=== PATIENT | female | born 1975 | race African-American/Black ===

== ENCOUNTER 2020-02-09 07:55 | Emergency (ER) | payer BC ==
[~2020-02-09] VITALS: Ht 167.6 cm; Wt 85.4 kg
--- OUTSIDE RECORDS SUMMARY | 2020-02-09 07:58 | XMS REPORT | Continuity of Care Document ---
Author Author [employer] Porfirio JANUSZ GUY Organization [employer] Address Unknown Phone Unavailable Care Team Providers Care Superintendent Commissary Name Role Phone [facility] [email or web address] Information [employer] Unavailable Un available Problems Problem Status Onset Date Classification Date Reported Comments Source Epigastric pain 12/12/2017 03/13/2018 [facility] EPIGASTRIC PAIN 12/05/2017 03/13/2018 [facility] ABDOMINAL PAIN-UPPER Active 12/04/2017 [facility] UPPER STOMACH PAIN Active 12/04/2017 [facility] Medications Medication Details Route Status Patient Instructions Ordering Provider Order Date Source magnesium citrate 58.2 MG/ML Oral Solution Notes: (Same as: Citrate of Magnesia) Concentration: 1.745 gm / 30 mL Inactive 12/05/2017 [facility] Morphine Notes: (Same as:MORPh ine Sulfate) Inactive 12/05/2017 [facility] Ondansetron 4 mg, Route: IVP, ONCE, Dosing Weight 75, kg, Priority: STAT, Start date: 12/04/17 20:38:00 CDT, Stop date: 12/04/17 20:38:00 CDT Inactive 12/05/2017 [facility] GI cocktail Notes: G.I. Cockta il = antacid with simethicone 22.5 mL - lidocaine viscous 7.5 mL Inactive 12/05/2017 [facility] Saline Flush 0.9% Notes: (Same as: BD Posiflush) No Longer Active 12/05/2017 [facility] Allergies, Adverse Reactions, Alerts No Known Medication Allergies Immunizations No Data Provided for This Section Results Order Name Results Value Reference Range Date Interpretation Comments Source URINE AND STOOL UA Urobilinogen <=1.0 mg/dL 0.1 - 1.0 12/05/2017 [facility] URINE AND STOOL UA WBC 9 0 - 5 12/05/2017 [facility] URINE AND STOOL UA Mucus Few /LPF None Seen /LPF 12/05/2017 [facility] URINE AND STOOL UA Bacteria Occasional /HPF None Seen /HPF 12/05/2017 [facility] URINE AND STOOL UA Blood Small *ABN* (12/04/17 11:52 PM) Negative 12/05/2017 [place] URINE AND STOOL UA Bili Negative *NA* (12/04/17 11:52 PM) Negative 12/05/2017 [place] URINE AND STOOL UA Sq Epi Occasional /LPF Few /LPF 12/05/2017 [place] URINE AND STOOL UA Nitrite Negative (12/04/17 11:52 PM) Negative 12/05/2017 [place] URINE AND STOOL UA Spec Grav 1.013 <=1.030 12/05/2017 [place] URINE AND STOOL UA Leuk Est Trace *ABN* (12/04/17 11:52 PM) Negative 12/05/2017 [place] URINE AND STOOL UA RBC 1 0 - 2 12/05/2017 [place] URINE AND STOOL UA Turbidity Clear (12/04/17 11:52 PM) Clear 12/05/2017 [place] URINE AND STOOL UA Color Yellow *NA* (12/04/17 11:52 PM) Yellow 12/05/2017 [place] URINE AND STOOL UA pH 8.0 5.0 - 8.0 12/05/2017 [place] URINE AND STOOL UA Ketones Negative mg/dL Negative mg/dL 12/05/2017 [facility] URINE AND STOOL UA Glucose Negative mg/dL Negative mg/dL 12/05/2017 [facility] URINE AND STOOL UA Protein Negative mg/dL Negative mg/dL 12/05/2017 [facility] CHEM PANEL Lipase Lvl 131 73 - 393 12/05/2017 [facility] CHEM PANEL eGFR 82 12/05/2017 Result Comment: The eGFR is calculated using the CKD-EPI formula. In most young, healthy individuals the eGFR will be >90 mL/min/1.73m2. The eGFR declines with age. An eGFR of 60-89 may be normal in some populations, particularly the elderly, for whom the CKD-EPI formula has not been extensively validated. Use of the eGFR is not recommended in the following populations:

Individuals with unstable creatinine concentrations, including patients and those with serious co-morbid conditions.

Patients with extremes in muscle mass or diet.

The data above are obtained from the National Kidney Disease Education Program (NKDEP) which additionally recommends that when the eGFR is used in patients with extremes of body mass index for purposes of drug dosing, the eGFR should be multiplied by the estimated BMI. [facility] CHEM PANEL Bili Total 0.1 0.2 - 1.3 12/05/2017 [facility] CHEM PANEL Alk Phos 65 39 - 136 12/05/2017 [facility] CHEM PANEL CO2 33 24 - 32 12/05/2017 [facility] CHEM PANEL AST 17 0 - 37 [facility]05[facility] ALT 17 0 - 65 12/05/2017 [facility] CHEM PANEL Total Protein 8.2 6.4 - 8.4 12/05/2017 [facility] CHEM PANEL Albumin Lvl 3.5 3.5 - 5.0 [facility]/05/2017 [facility] Calcium Lvl 8.6 8.5 - 10.5 12/05/2017 [facility] CHEM PANEL Chloride Lvl 105 95 - 109 12/05/2017 [facility] CHEM PANEL Glucose Lvl 91 70 - 99 [facility]/05[facility] Sodium Lvl 141 135 - 145 [facility]05[facility] Potassium Lvl 3.7 3.5 - 5.1 12/05/2017 [facility] CHEM PANEL BUN 10 7 - 22 12/05/2017 [facility] CHEM PANEL Creatinine Lvl 0.97 0.50 - 1.40 12/05/2017 [facility] CHEM PANEL Globulin 4.7 2.7 - 4.2 12/05/2017 [facility] CHEM PANEL B/C Ratio 10 6 - 25 12/05/2017 [facility] CHEM PANEL A/G Ratio 0.7 0.7 - 1.6 12/05/2017 [facility] CHEM PANEL AGAP 6.7 10.0 - 20.0 12/05/2017 [facility] ENDOCRINOLOGY S Preg Ne gative *NA* (12/04/17 9:26 PM) Negative 12/05/2017 [facility] HEMATOLOGY Platelet 385 133 - 450 12/05/2017 [facility] HEMATOLOGY MCV 82.8 80.0 - 98.0 12/05/2017 [facility] HEMATOLOGY MCHC 33.4 32.0 - 36.0 12/05/2017 [facility] HEMATOLOGY MCH 27.7 27.0 - 31.0 12/05/2017 [facility] HEMATOLOGY RDW 13.7 11.5 - 14.5 12/05/2017 [facility] MPV 7.4 7.4 - 10.4 12/05/2017 [facility] WBC 8.5 3.7 - 10.4 12/05/2017 [facility] Hgb 12.6 12.0 - 16.0 12/05/2017 [facility] RBC 4.57 4.20 - 5.40 12/05/2017 [facility] Hct 37.9 36.0 - 48.0 12/05/2017 [facility] Basophils 1.8 0.0 - 1.0 12/05/2017 [facility] Lymphocytes # 4.1 1.0 - 5.5 12/05/2017 [facility] Segs-Bands # 3.3 1.5 - 8.1 12/05/2017 [facility] Monocytes # 0.4 0.0 - 0.8 12/05/2017 [facility] Eosinophils # 0.5 0.0 - 0.5 12/05/2017 [facility] Basophils # 0.2 0.0 - 0.2 12/05/2017 [facility] Segs 38.7 45.0 - 75.0 12/05/2017 [facility] Lymphocytes 49.1 20.0 - 40.0 12/05/2017 [facility] Eosinophils 5.7 0.0 - 4.0 12/05/2017 [facility] Monocytes 4.7 2.0 - 12.0 12/05/2017 [facility] Pathology Reports No Data Provided for This Section Diagnostic Reports Report Value Date Source Abdomen RUST US Patient Name: Jerod COSBY : 1975; Age: 42 years y/o Female MR: [id number] RIGHT UPPER QUADRANT ABDOMINAL ULTRASOUND HISTORY: Upper abdominal pain. Technique: The right upper quadrant of the abdomen was evaluated with dynamic ultrasound scanning. Prior studies reviewed: none FINDINGS: * Gallbladder: The gallbladder is contracted which may be related to a nonfasting state. The technologist indicates the patient recently ate. No gallstones are identified. * Common bile duct: Within normal limits, 3 mm in diameter. * Intrahepatic ducts: Not dilated. * Liver: Normal in size and echogenicity. No focal lesions are seen. * Right kidney: Normal in size and echogenicity without hydronephrosis. No focal lesions are seen. ( ) The right kidney measures 9.3 x 5.0 x 4.4 cm. ( ) IMPRESSION: 1. No evidence of cholelithiasis or bili missy ductal dilatation. The gallbladder is contracted which may be related to a nonfasting state. SL: VERONICA 12/04/2017 [facility] Consultation Notes No Data Provided for This Section Discharge Summaries No Data Provided for This Section History and Physicals No Data Provided for This Section Vital Signs Vital Sign Value Date Comments Source Weight 75 0 12/05/2017 [facility] Systolic (mm Hg) 124 12/05/2017 [facility] Diastolic (mm Hg) 92 12/05/2017 [facility] Heart Rate 95 12/05/2017 [facility] Temperature Oral (F) 98.0 F 12/05/2017 [facility] Respitory Rate 18 12/05/2017 [facility] Encounters Location Location Details Encounter Type Encounter Number Reason For Visit Attending Provider ADM Date DC Date Status Source Outpatient [id number] AVA DESTINI RYDERS 08/28/2016 Active [facility] Outpatient [id number] [facility] 09/11/2016 [facility] Emergency [id number] Nick Byrd Jr 12/05/2017 12/05/2017 [facility] Procedures Procedure Code Date Perfomer Comments Source Breast reduction [id number] Rhona d Assessment and Plan No Data Provided for This Section Plan of Care No Data Provided for This Section Social History Social History Date Source Social History TypeResponse Smoking Status Reg Smoking Cessation Counseling No; Never smoker; Exposure to Tobacco Smoke None; Cigarette Smoking Last 365 Days No entered on: 12/04/17 12/05/2017 [facility] Family History No Data Provided for This Section Advance Directives No Data Provided for This Section Functional Status No Data Provided for This Section
--- OUTSIDE RECORDS SUMMARY | 2020-02-09 07:58 | XMS REPORT | Summary of Care ---
Author Author [facility] Organization [facility] Address Unknown Phone Unavailable Encounter HQ Ta(FIN) [id number] Date(s): 12/04/17 - 12/05/17 [facility] [address] [place] [address]- [facility] [phone] Encounter Diagnosis EPIGASTRIC PAIN (Discharge Diagnosis) - 12/05/17 Epigastric pain (Final) - 12/11/17 Discharge Disposition: Home or Self Care Attending Physician: Nick Sweet MD Vital Signs Most recent to 1 oldest [Reference Range]: Temperature Oral 98.0 DegF [96.4-99.1 DegF] (12/04/17 8:32 PM) Blood Pressure 124/92 mmHg [90-140/60-90 mmHg] (12/04/17 8:32 PM) Respiratory Rate 18 BRMIN [14-20 BRMIN] (12/04/17 8:32 PM) Peripheral Pulse 95 bpm Rate [60-100 bpm] (12/04/17 8:32 PM) Weight 75 kg (12/04/17 8:32 PM) Problem List No data available for this section Allergies, Adverse Reactions, Alerts Substance Reaction Severity Status NKDA Active Medications GI cocktail 30 mL, Route: PO, Drug Form: SUSP, Dosing Weight 75, kg, ONCE, STAT, Start date: 12/04/17 20:37:00 CDT, Stop date: 12/04/17 20:37:00 CDT Notes: G.I. Cocktail = antacid with simethicone 22.5 mL - lidocaine viscous 7.5 mL Start Date: 12/04/17 Stop Date: 12/04/17 Status: Completed magnesium citrate 1.745 g/30 mL oral liquid 150 ml, Route: PO, Drug Form: LIQ, Dosing Weight 75, kg, ONCE, Start date: 12/05 0:03:00 CDT, Stop date: 12/05/17 0:03:00 CDT Notes: (Same as: Citrate of Magnesia)Concentration: 1.745 gm / 30 mL Start Date: 12/05/17 Stop Date: 12/05/17 Status: Completed morphine Sulfate 4 mg, 1 mL, Route: IVP, Drug form: SOLN, ONCE, Dosing Weight 75, kg, Priority: S TAT, Start date: 12/04/17 20:38:00 CDT, Stop date: 12/04/17 20:38:00 CDT Notes: (Same as:MORPhine Sulfate) Start Date: 12/04/17 Stop Date: 12/04/17 Status: Completed ondansetron 4 mg, Route: IVP, ONCE, Dosing Weight 75, kg, Priority: STAT, Start date: 20:38:00 CDT, Stop date: 12/04/17 20:38:00 CDT Start Date: 12/04/17 Stop Date: 12/04/17 Status: Completed Saline Flush 0.9% 10 mL, Route: IVP, Drug Form: INJ, Dosing Weight 75, kg, PRN, PRN Line Flush, St art date: 12/04/17 20:37:00 CDT, Duration: 30 day, Stop date: 01/03/18 20:36:00 CDT Notes: (Same as: BD Posiflush) Start Date: 12/04/17 Stop Date: 12/05/17 Status: Discontinued Results ELECTROLYTES Most recent to 1 oldest [Reference Range]: Sodium Lvl [135-145 141 mEq/L mEq/L] (12/04/17 9:26 PM) Potassium Lvl 3.7 mEq/L [3.5-5.1 mEq/L] (12/04/17 9:26 PM) Chloride Lvl [95-109 105 mEq/L mEq/L] (12/04/17 9:26 PM) CO2 [24-32 mEq/L] 33 mEq/L *HI* (12/04/17 9:26 PM) AGAP [10.0-20.0 6.7 mEq/L mEq/L] *LOW* (12/04/17 9:26 PM) CHEM PANEL Most recent to 1 oldest [Reference Range]: Creatinine Lvl 0.97 mg/dL [0.50-1.40 mg/dL] (12/04/17 9:26 PM) eGFR 82 mL/min/1.73m2 1 *NA* (12/04/17:26 PM) BUN [7-22 mg/dL] 10 mg/dL (12/04/17 9:26 PM) B/C Ratio [6-25] 10 (12/04/17: PM) Glucose Lvl [70-99 91 mg/dL mg/dL] (12/04/17 9:26 PM) Total Protein 8.2 g/dL [6.4-8.4 g/dL] (12/04/17 9: PM) Albumin Lvl [3.5-5.0 3.5 g/dL g/dL] (12/04/17:26 PM) Globulin [2.7-4.2 4.7 g/dL g/dL] *HI* (12/04/17: PM) A/G Ratio [0.7-1.6] 0.7 (12/04/17 9:26 PM) Calcium Lvl 8.6 mg/dL [8.5-10.5 mg/dL] (12/04/17 9:26 PM) ALT [0-65 unit/L] 17 unit/L (12/04/17 9:26 PM) AST [0-37 unit/L] 17 unit/L (12/04/17 9:26 PM) Alk Phos [39-136 65 unit/L unit/L] (12/04/17 9:26 PM) Bili Total [0.2-1.3 0.1 mg/dL mg/dL] *LOW* (12/04/17 9:26 PM) Lipase Lvl [73-393 131 unit/L unit/L] (12/04/17 9:26 PM) 1Result Comment: The eGFR is calculated using the [...] from the National Kidney Disease Education Program ( NKDEP) which additionally recommends that when the eGFR is used in patients with extremes of body mass index for purposes of drug dosing, the eGFR should be mul tiplied by the estimated BMI. ENDOCRINOLOGY Most recent to 1 oldest [Reference Range]: S Preg [Negative] Negative *NA* (12/04/17 9:26 PM) URINE AND STOOL Most recent to 1 oldest [Reference Range]: UA Turbidity [Clear] Clear (12/04/17 11:52 PM) UA Color [Yellow] Yellow *NA* (12/04/17 11:52 PM) UA pH [5.0-8.0] 8.0 (12/04/17 11:52 PM) UA Spec Grav 1.013 [<=1.030] (12/04/17 11:52 PM) UA Glucose [Negative Negative mg/dL mg/dL] *NA* (12/04/17 11:52 PM) UA Blood [Negative] Small *ABN* (12/04/17 11:52 PM) UA Ketones [Negative Negative mg/dL mg/dL] *NA* (12/04/17 11:52 PM) UA Protein [Negative Negative mg/dL mg/dL] (12/04/17 11:52 PM) UA Urobilinogen <=1.0 mg/dL [0.1-1.0 mg/dL] *NA* (12/04/17 11:52 PM) UA Bili [Negative] Negative *NA* (12/04/17 11:52 PM) UA Leuk Est Trace [Negative] *ABN* (12/04/17 11:52 PM) UA Nitrite Negative [Negative] (12/04/17 11:52 PM) UA WBC [0-5 /HPF] 9 /HPF *HI* (12/04/17 11:52 PM) UA RBC [0-2 /HPF] 1 /HPF (12/04/17 11:52 PM) UA Bacteria [None Occasional /HPF Seen /HPF] *NA* (12/04/17 11:52 PM) UA Sq Epi [Few /LPF] Occasional /LPF *NA* (12/04/17 11:52 PM) UA Mucus [None Seen Few /LPF /LPF] *NA* (12/04/17 11:52 PM) HEMATOLOGY Most recent to 1 oldest [Reference Range]: WBC [3.7-10.4 K/CMM] 8.5 K/CMM (12/04/17 9:26 PM) RBC [4.20-5.40 4.57 M/CMM M/CMM] (12/04/17 9:26 PM) Hgb [12.0-16.0 g/dL] 12.6 g/dL (12/04/17 9:26 PM) Hct [36.0-48.0 %] 37.9 % (12/04/17 9:26 PM) MCV [80.0-98.0 fL] 82.8 fL (12/04/17 9:26 PM) MCH [27.0-31.0 pg] 27.7 pg (12/04/17 9:26 PM) MCHC [32.0-36.0 33.4 g/dL g/dL] (12/04/17 9:26 PM) RDW [11.5-14.5 %] 13.7 % (12/04/17 9:26 PM) MPV [7.4-10.4 fL] 7.4 fL (12/04/17 9:26 PM) Platelet [133-450 385 K/CMM K/CMM] (12/04/17 9:26 PM) Segs [45.0-75.0 %] 38.7 % *LOW* (12/04/17 9:26 PM) Lymphocytes 49.1 % [20.0-40.0 %] *HI* (12/04/17 9:26 PM) Monocytes [2.0-12.0 4.7 % %] (12/04/17 9:26 PM) Eosinophils [0.0-4.0 5.7 % %] *HI* (12/04/17 9:26 PM) Basophils [0.0-1.0 1.8 % %] *HI* (12/04/17 9:26 PM) Segs-Bands # 3.3 K/CMM [1.5-8.1 K/CMM] (12/04/17 9:26 PM) Lymphocytes # 4.1 K/CMM [1.0-5.5 K/CMM] (12/04/17 9:26 PM) Monocytes # [0.0-0.8 0.4 K/CMM K/CMM] (12/04/17 9:26 PM) Eosinophils # 0.5 K/CMM [0.0-0.5 K/CMM] (12/04/17 9:26 PM) Basophils # [0.0-0.2 0.2 K/CMM K/CMM] (12/04/17 9:26 PM) Immunizations No data available for this section Procedures Procedure Date Related Diagnosis Body Site Status Breast reduction Completed Social History Social History Type Response Smoking Status Reg Smoking Cessation Reba hankins No; Never smoker; Exposure to Tobacco Smoke None; Cigarette Smoking Last 365 Days No entered on: 12/04/17 Assessment and Plan No data available for this section
--- OUTSIDE RECORDS SUMMARY | 2020-02-09 07:58 | XMS REPORT ---
Author Author [facility] Organization [facility] Address [address] [place] [address] Phone Unavailable Care Team Providers Care Pupil Personnel Worker Name Role Phone Martin Byrd Jr Attphys Payers Payer Name Policy Type Policy Number Effective Date Expiration Date S ource Problems This patient has no known problems. Allergies, Adverse Reactions, Alerts This patient has no known allergies or adverse reactions. Medications This patient has no known medications. Procedures This patient has no known procedures. Encounters Start Date/Time End Date/Time Encounter Type Admission Type [facility] Care Department Encounter ID Source 2017-12-04 20:25:00 2017-12-05 00:43:00 Outpatient Nick Pedroza [facility] [id number] [facility] Results This patient has no known results.
--- NOTE | 2020-02-09 08:41 | Emergency Department Note ---
History of Present Illnes History of Present Illness Chief Complaint: Skin Rash or Abscess History of Present Illness This is a 44 year old female smoker no significant PMHx c/o a small lesion left posterior leg, for 1 week, now healed but she started to have shooting pain intermittently for for few days, on exam, she actually has other smaller lesions surrounding it c/w shingle . Historian: Patient, Family Member Arrival Mode: Car Foiling Machine Adjuster Required: No Onset (how long ago): week(s) (1 week) Location: left leg Severity: moderate (6-8) Onset quality: gradual Duration (how long): week(s) (1 week) Progression: waxing and waning Relieving factors: none Exacerbating factors: none Treatments prior to arrival: none Past Medical/Family History Physician Review I have reviewed the patient's past medical and family history. Any updates have been documented here. Past Medical History Recent Fever: No Clinical Suspicion of Infectio: No New/Unexplained Change in Ment: No Past Medical History: None Past Surgical History: Tubal Ligation Social History Smoking Cessation: Current every day smoker Counseling Performed: No Alcohol Use: Occasional Any Illegal Drug Use: No TB Exposure/Symptoms: No Physically hurt or threatened: No Family History Family history of heart diseas: No Other Any Pre-Existing Lines (PICC,: No Review of Systems Review of Systems Constitutional: no symptoms EENTM: no symptoms Cardiovascular: no symptoms Respiratory: no symptoms Gastrointestinal: no symptoms Genitourinary: no symptoms Musculoskeletal: as per HPI, other (deep shooting pain left leg on and off) Neurological: no symptoms Psychological: no symptoms Endocrine: no symptoms Hematological/Lymphatic: no symptoms Review of other systems All other systems reviewed and negative. Physical Exam Related Data Allergies: Coded Allergies: No Known Allergies (Unverified , 02/09/20) Physical Exam CONSTITUTIONAL Constitutional: well-developed, well-nourished HENT HENT: normocephalic, atraumatic, oropharynx clear/moist, nose normal HENT L/R: left ext ear normal, right ext ear normal EYES Eyes: PERRL, conjunctivae normal NECK Neck: ROM normal PULMONARY Pulmonary: effort normal, breath sounds normal CARDIOVASCULAR Cardiovascular: regular rhythm, heart sounds normal, capillary refill normal, normal rate GASTROINTESTINAL Abdominal: soft, nontender, bowel sounds normal GENITOURINARY Genitourinary: exam deferred SKIN Skin: warm, dry, lesion (small lesion crusted off on posterior mid left leg, s urrounnded with other smaller vague lesions) MUSCULOSKELETAL Musculoskeletal: ROM normal NEUROLOGICAL Neurological: alert, oriented x 3, no gross motor or sensory deficits PSYCHOLOGICAL Psychological: mood/affect normal, judgement normal Critical Care Time Subsequent provider . Clinical Decision Tools HEART Score Date Taken: February 09, 2020 Another reason for symptoms: HEART score not applicable Assessment & Plan Assessment & Plan Problems: (1) Acute pain associated with herpes zoster (2) Acute herpes zoster neuropathy (3) Shingles (4) Shingles rash Assessment & Plan 44 to AAF with rash of posterior leg, no abscess, no cellulitis, associated with neuropathic pain c/w shingle. doubt insect bites Depart Disposition: HOME, SELF-FCI Meds Active Scripts Ibuprofen (IBUPROFEN) 200 Mg Capsule, 600 MG PO Q6H PRN for SEVERE PAIN (7-10), #60 TAB Prov:MARIE BENNETT MD 02/09/20 Gabapentin (NEURONTIN) 300 Mg Capsule, 300 MG PO BID for 30 Days, CAP Prov:MARIE BENNETT MD 02/09/20 Valacyclovir Hcl (VALTREX) 1,000 Mg Tablet, 1 TAB PO BIDAC for 7 Days, #14 TAB Prov:MARIE BENNETT MD 02/09/20 MARIE BENNETT MD February 09, 2020 08:17
[2020-02-09] MEDS ORDERED: IBUPROFEN200 MG PO (08:48)
[2020-02-09] MEDS ORDERED: VALTREX1000 MG PO (08:48)
[2020-02-09] MEDS ORDERED: NEURONTIN300 MG PO (08:48)
== END 2020-02-09 08:37 | disposition home or self-care (01) ==
LOC: FSED 07:55
DX: B02.29 Other postherpetic nervous system involvement (principal); F17.210 Nicotine dependence, cigarettes, uncomplicated
CPT/HCPCS: 99282